=== PATIENT | male | born 1960 | race Caucasian/White ===

== ENCOUNTER 2018-05-24 06:42 | Observation (INO) ==
--- NOTE | 2018-05-24 06:57 | ERNOTE ---
<Fahad Yeager - Last Filed: 05/24/18 07:56> Dyspnea - General Presenting Symptoms: shortness of breath Time Seen by Provider: 05/24/18 06:48 Source: patient Exam Limitations: no limitations - Immun/Allergies/Home Medications Immunizations: IMMUNIZATION HX Immunizations Up to Date Yes Allergies/Adverse Reactions: Allergies codeine Adverse Reaction (Intermediate, Verified 05/24/18 06:52) HALLUCINATIONS Tetracyclines Adverse Reaction (Intermediate, Verified 05/24/18 06:52) DYSENTARY erythromycin base [Erythromycin Base] Adverse Reaction (Mild, Verified 05/24/18 06:52) N/V latex Adverse Reaction (Mild, Verified 05/24/18 06:52) OXYGEN TUBING CAUSES BLISTERS NOSE/EARS Home Medications: HOME MEDICATIONS Aspirin 325 mg PO DAILY 02/06/14 [Last Taken Unknown] Sildenafil Citrate [Viagra] 100 mg PO DAILY PRN 02/06/14 [Last Taken Unknown] albuterol sulfate 2.5 mg/3 mL (0.083 %) solution for nebulization 2.5 mg IH Q6H PRN ml 12/20/17 [Last Taken Unknown] benazepril 20 mg tablet 20 mg PO DAILY 90 Days #90 tab 12/21/17 [Last Taken Unknown] prasugrel 10 mg tablet 10 mg PO DAILY 30 Days #30 tab 01/10/18 [Last Taken Unknown] pantoprazole 40 mg tablet,delayed release 40 mg PO DAILY #30 tab 01/22/18 [Last Taken Unknown] ipratropium 20 mcg-albuterol 100 mcg/actuation mist for inhalation 1 puff IH Q6H #4 g 04/26/18 [Last Taken Unknown] benzonatate 200 mg capsule 200 mg PO TID PRN #30 cap 05/09/18 [Last Taken Unknown] fluticasone 50 mcg/actuation nasal spray,suspension 2 spray PAULA DAILY PRN 05/09/18 [Last Taken Unknown] prednisone 20 mg tablet See Rx Instructions PO DAILY #14 tab 05/14/18 [Last Taken Unknown] ciprofloxacin 500 mg tablet 500 mg PO BID 14 Days #28 tab 05/22/18 [Last Taken Unknown] - History of Present Illness Narrative: Pt arrived by EMS with c/o shortness of breath that worsened overnight. He st ates he has had a URI for 3 weeks and thought he was over it until night before last when he began to worsen again. 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 Severity: moderate Treatment DEVELOPMENT SCIENTIST: by patient, albuterol Initiating event: Reports: upper resp illness Frequency of episodes: Reports: occassional episodes Modifying Factors - (Improves): Reports: albuterol, oxygen Modifying Factors (Worsens): Reports: activity Associated Symptoms-Dyspnea: Reports: fever/chills Prior Treatment: Reports: recently seen Review of Systems - Review of Systems Constitutional: Present: recent illness, fever, chills, fatigue, malaise ENT: Present: nose congestion, nasal drainage Respiratory: Present: shortness of breath, cough, orthopnea, wheezing Gastrointestinal/Abdominal: Absent: nausea, vomiting Musculoskeletal: Absent: back pain, muscle pain Skin: Absent: rash Endocrine: Present: excessive sweating Medical History (Last Reviewed 05/24/18 @ 06:56 by Fahad Yeager DO) Tobacco abuse (Chronic) Rhinitis (Chronic) Onset Date: Unknown PAD (peripheral artery disease) (Chronic) Onset Date: Unknown Morbid obesity (Chronic) Onset Date: Unknown Hypertension (Chronic) Onset Date: ~2012 Hyperlipidemia (Chronic) Onset Date: ~2012 GERD (gastroesophageal reflux disease) (Chronic) Onset Date: ~2012 Erectile dysfunction (Chronic) Onset Date: ~2012 COPD (chronic obstructive pulmonary disease) (Chronic) Onset Date: ~2012 Cardiomegaly (Chronic) Onset Date: Unknown Asthma (Chronic) Onset Date: Unknown Anemia Onset Date: Unknown Surgical History: Surgical History (Last Reviewed 05/24/18 @ 06:56 by Fahad Yeager DO) History of ankle surgery Onset Date: Unknown Left ankle repair-screws and plate History of cholecystectomy Onset Date: ~2008 Dr Paredes History of colonoscopy Onset Date: ~2013 Dr Burgos-sigmoid diverticulosis. Recheck in 10 years. History of tonsillectomy Onset Date: ~1963 Sebaceous cyst Onset Date: ~2001 Posterior neck, under chin stent Onset Date: ~2011 [facility]-2 stents in left leg Family History: Family History (Last Reviewed 05/24/18 @ 06:56 by Fahad Yeager DO) Sister Heart disease Hypertension Father , age 82 Colon cancer Hypertension CVA (cerebral vascular accident) Mother , age 63 CHF (congestive heart failure) Heart disease Hypothyroidism Social History: Preferred Language German Smoking Status Current every day smoker Smoking packs per day 0.5 (Last Updated 05/20/18 @ 14:56 by DARRICK Manzo) No Social History Section defined Physical Exam - Physical Exam General Appearance: Present: wd/wn, alert, mild distress Head Exam: Present: normal inspection, no evidence of injury Neck: Present: normal inspection, nontender, supple Respiratory: Present: no respiratory distress, chest nontender, accessory muscle use - mild, decreased breath sounds, wheezing - mild Cardiovascular/Chest: Present: no murmur, tachycardia Back Exam: Present: normal inspection, normal range of motion, no vertebral tenderness Extremity Exam: Present: normal range of motion, extremity edema - mild Neurological Exam: Present: alert, oriented, no motor/sensory deficits Skin Exam: Present: normal color, warm/dry Lymphatic Exam: Present: no adenopathy Progress - Results and Orders Patient's Lab Results:: I have reviewed the patient's lab results. Results and Orders: Laboratory Tests 05/24/18 05/24/18 07:11 07:11 WBC 12.1 H Hgb 15.2 Hct 45.2 Plt Count 238 Neutrophils % 76.7 H Sodium 137 Potassium 4.1 Chloride 99 BUN 13 Creatinine 1.15 Random Glucose 104 Calcium 8.4 Total Bilirubin 0.3 AST 14 ALT 19 Alkaline Phosphatase 67 B-Natriuretic Peptide 146 Total Protein 7.0 Albumin 3.2 L - Vital Signs Patient's Vital Signs:: I have reviewed the patient's vital signs. - EKG EKG #1 EKG: supraventricular tachycardia - sinus tach, nonspecific ST T wave changes EKG read: Interp. by me - X-Ray X-Ray #1 X-Ray: chest Interpretation: Interp. by me X-ray Comments: no acute changes. - Transfer of Care Physician Sign Out: Fahad Yeager Receiving Physician: Mane Burleson Pending Results: Labs Expected Disposition: Discharge Departure Clinical Impression: Influenza, COPD exacerbation - Departure Disposition: Still a patient Condition: Fair Referrals: Mahogany Donnelly FNP [Primary Care Provider] - <Mane Burleson - Last Filed: 05/24/18 09:00> Dyspnea - Date Date of Service: 05/24/18 - Immun/Allergies/Home Medications Immunizations: IMMUNIZATION HX Immunizations Up to Date Yes History of Influenza Vaccine Yes Hx Pneumococcal Vaccination Yes Medical History (Last Reviewed 05/24/18 @ 06:56 by Fahad Yeager DO) Tobacco abuse (Chronic) Rhinitis (Chronic) Onset Date: Unknown PAD (peripheral artery disease) (Chronic) Onset Date: Unknown Morbid obesity (Chronic) Onset Date: Unknown Hypertension (Chronic) Onset Date: ~2012 Hyperlipidemia (Chronic) Onset Date: ~2012 GERD (gastroesophageal reflux disease) (Chronic) Onset Date: ~2012 Erectile dysfunction (Chronic) Onset Date: ~2012 COPD (chronic obstructive pulmonary disease) (Chronic) Onset Date: ~2012 Cardiomegaly (Chronic) Onset Date: Unknown Asthma (Chronic) Onset Date: Unknown Anemia Onset Date: Unknown Surgical History: Surgical History (Last Reviewed 05/24/18 @ 06:56 by Fahad Yeager DO) History of ankle surgery Onset Date: Unknown Left ankle repair-screws and plate History of cholecystectomy Onset Date: ~2008 Dr Paredes History of colonoscopy Onset Date: ~2013 Dr Burgos-sigmoid diverticulosis. Recheck in 10 years. History of tonsillectomy Onset Date: ~1963 Sebaceous cyst Onset Date: ~2001 Posterior neck, under chin stent Onset Date: ~2011 [facility]-2 stents in left leg Family History: Family History (Last Reviewed 05/24/18 @ 06:56 by Fahad Yeager DO) Sister Heart disease Hypertension Father , age 82 Colon cancer Hypertension CVA (cerebral vascular accident) Mother , age 63 CHF (congestive heart failure) Heart disease Hypothyroidism Social History: Preferred Language German Smoking Status Current every day smoker Have you smoked in the past 12 Yes months Smoking packs per day 0.5 Alcohol Use none Drug Use none (Last Updated 05/20/18 @ 14:56 by DARRICK Manzo) No Social History Section defined Progress - Date and Time Seen: Date and Time: 05/24/18 08:57 patient continues to be sob, albuteral. solumedrol,o2 started, case discussed with dr jack to admit to observation - Vital Signs Vital Signs: Vital Signs 05/24/18 06:49 05/24/18 06:54 05/24/18 07:35 Temperature 38.6 C H Pulse Rate 114 H 114 H 109 H Respiratory Rate 25 H 21 H Blood Pressure 129/67 136/63 O2 Sat by Pulse Oximetry 92 L 90 L 05/24/18 07:50 05/24/18 08:05 05/24/18 08:17 Temperature Pulse Rate 106 H 104 H 104 H Respiratory Rate 26 H 34 H Blood Pressure 124/56 142/63 H O2 Sat by Pulse Oximetry 89 L 90 L 05/24/18 08:35 Temperature 38.3 C H Pulse Rate 138 H Respiratory Rate 21 H Blood Pressure 120/46 O2 Sat by Pulse Oximetry 92 L - Progress/Reassessment Progress:: Unchanged - Transfer of Care Expected Disposition: Admit, Discharge Plan - Plan Plan: to admit to observation
[2018-05-24 07:18] LABS: Hematocrit 45.2 % (42.0-52.0); Hemoglobin 15.2 gm/dL (13.5-18.0); Mean Cell Volume 91.1 fl (78-100); Mean Corpuscular Hemoglobin 30.6 pg (27-31); Mean Corpuscular Hgb Conc 33.6 g/dl (32-36); Mean Platelet Volume 8.6 fl (8-11.3); Neutrophil # 9.3 K/mm3 (1.3-6.0); Neutrophil % 76.7 % (42-75.0); Platelet Count 238 K/mm3 (150-450); Red Blood Count 4.96 M/mm3 (4.7-6.0); Red Cell Distribution Width 15.3 % (11.5-14.0); White Blood Count 12.1 K/mm3 (4.0-10.5)
[2018-05-24 07:35] LABS: Albumin * 3.2 gm/dl (3.4-5.0); Anion Gap 14.9 mmol/L (6.8-13.8); BUN/Creatinine Ratio 11.3 (9.0-21.6); Bilirubin, Total 0.3 mg/dL (0.0-1.1); Ca. Corrected For Albumin 8.7 mg/dL (8.4-10.2); Calcium * 8.4 mg/dL (7.9-10.9); Carbon Dioxide 27.2 mmol/L (24-32.6); Potassium 4.1 mmol/L (3.4-4.6)
[2018-05-24] MEDS ORDERED: ACETAMINOPHEN 500 MG TABLET PO ONE (07:39)
[2018-05-24] MEDS ORDERED: ALBUTEROL SULFATE 2.5 MG/0.5 ML VIAL.NEB IH ONE (08:11)
[2018-05-24] MEDS ORDERED: METHYLPREDNISOLONE SOD SUCC/PF 125 MG/2 ML VIAL IV ONE (08:43)
[2018-05-24] MEDS ORDERED: ALBUTEROL SULFATE 2.5 MG/0.5 ML VIAL.NEB IH PRN (09:02)
[2018-05-24] MEDS ORDERED: METHYLPREDNISOLONE SOD SUCC/PF 40 MG/ML VIAL IV SCH (09:15)
[2018-05-24] MEDS ORDERED: DEXTROSE 5 % IN WATER 100 ML BAG IV ONE (09:21)
[2018-05-24] MEDS: AZITHROMYCIN 500 MG in DEXTROSE 5 % IN WATER 250 ML IV SCH ×2 (10:31)
[2018-05-24] MEDS ORDERED: BENZONATATE 100 MG CAPSULE PO PRN (12:32)
[2018-05-24] MEDS ORDERED: FLUTICASONE PROPIONATE 120 SPRAY INHALER NS PRN (12:32)
--- NOTE | 2018-05-24 12:52 | HP ---
Chief Complaint - Chief Complaint Date of Service: 05/24/18 Time of Service: 12:50 Chief Complaint: SOB, cough, body aches History of Present Illness: Patient presented to the ER with 3 days of shortness of breath, cough, fever, and body aches. Patient was found to test positive for influenza A. He also has history of COPD and concern for possible COPD exacerbation so was admitted to the hospital due to trouble maintaining sats above 88 off of oxygen. Patient does not use oxygen at home. He was given a dose of Rocephin as well as Solu- Medrol. He was not started on Tamiflu due to being outside treatment window. Since being admitted to the floor he has been afebrile. He was brought in on 2 L of O2 per nasal cannula. He does have a dry cough. Medical History (Last Reviewed 05/24/18 @ 09:51 by Chelo Ojeda RN) Tobacco abuse (Chronic) Rhinitis (Chronic) Onset Date: Unknown PAD (peripheral artery disease) (Chronic) Onset Date: Unknown Morbid obesity (Chronic) Onset Date: Unknown Hypertension (Chronic) Onset Date: ~2012 Hyperlipidemia (Chronic) Onset Date: ~2012 GERD (gastroesophageal reflux disease) (Chronic) Onset Date: ~2012 Erectile dysfunction (Chronic) Onset Date: ~2012 COPD (chronic obstructive pulmonary disease) (Chronic) Onset Date: ~2012 Cardiomegaly (Chronic) Onset Date: Unknown Asthma (Chronic) Onset Date: Unknown Anemia Onset Date: Unknown Surgical History: Surgical History (Last Reviewed 05/24/18 @ 09:51 by Chelo Ojeda RN) History of ankle surgery Onset Date: Unknown Left ankle repair-screws and plate History of cholecystectomy Onset Date: ~2008 Dr Paredes History of colonoscopy Onset Date: ~2013 Dr Burgos-sigmoid diverticulosis. Recheck in 10 years. 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 Smoking Status Current every day smoker Have you smoked in the past 12 Yes months Smoking packs per day 0.5 Alcohol Use none Drug Use none (Last Updated 05/20/18 @ 14:56 by DARRICK Manzo) No Social History Section defined Review Of Systems (GEN) - Review of Systems Generalized/Overall Review: Present: Chills, Fever, Malaise EENTM: Present: Nose Congestion, Throat Pain - From cough Respiratory: Present: Cough, Shortness of Breath. Absent: Stridor, Wheezing Cardiac: Absent: Chest Pain, Edema, Palpitations Abdominal: Present: No Symptoms Reported Musculoskeletal: Present: Other - Generalized body aches Neurological: Present: No Symptoms Reported Skin: Present: No Symptoms Reported Immunizations: IMMUNIZATION HX Immunizations Up to Date Yes History of Influenza Vaccine Yes Hx Pneumococcal Vaccination Yes Allergies/Adverse Reactions: Allergies Allergy/AdvReac Type Severity Reaction Status Date / Time codeine AdvReac Intermediate HALLUCINATI Verified 05/24/18 09:53 ONS Tetracyclines AdvReac Intermediate DYSENTARY Verified 05/24/18 09:53 erythromycin base AdvReac Mild N/V Verified 05/24/18 09:53 [Erythromycin Base] latex AdvReac Mild OXYGEN Verified 05/24/18 09:53 TUBING CAUSES BLISTERS NOSE/EARS Home Medications: HOME MEDICATIONS Aspirin 325 mg PO DAILY 02/06/14 [Last Taken Unknown] Sildenafil Citrate [Viagra] 100 mg PO DAILY PRN 02/06/14 [Last Taken Unknown] albuterol sulfate 2.5 mg/3 mL (0.083 %) solution for nebulization 2.5 mg IH Q6H PRN ml 12/20/17 [Last Taken Unknown] benazepril 20 mg tablet 20 mg PO DAILY 90 Days #90 tab 12/21/17 [Last Taken Unknown] prasugrel 10 mg tablet 10 mg PO DAILY 30 Days #30 tab 01/10/18 [Last Taken Unknown] pantoprazole 40 mg tablet,delayed release 40 mg PO DAILY #30 tab 01/22/18 [Last Taken Unknown] ipratropium 20 mcg-albuterol 100 mcg/actuation mist for inhalation 1 puff IH Q6H #4 g 04/26/18 [Last Taken Unknown] benzonatate 200 mg capsule 200 mg PO TID PRN #30 cap 05/09/18 [Last Taken Unknown] fluticasone 50 mcg/actuation nasal spray,suspension 2 spray PAULA DAILY PRN 05/09/18 [Last Taken Unknown] prednisone 20 mg tablet See Rx Instructions PO DAILY #14 tab 05/14/18 [Last Taken Unknown] ciprofloxacin 500 mg tablet 500 mg PO BID 14 Days #28 tab 05/22/18 [Last Taken Unknown] Exam - Exam Vital Signs: Vital Signs - Last Taken Temp 37.2 C 05/24/18 09:55 Pulse 105 H 05/24/18 11:31 Resp 28 H 05/24/18 09:55 BP 108/49 05/24/18 09:55 Pulse Ox 94 05/24/18 09:55 Constitutional: Present: Alert, Oriented x3, Cooperative Neck: Present: non-tender, full range of motion Back Exam: Present: normal inspection, no CVA tenderness Respiratory: Present: chest non-tender, lungs clear, decreased breath sounds - Bilateral bases. Absent: rhonchi, stridor, wheezing - Bilateral bases Cardiovascular/Chest: Present: normal peripheral pulses. Absent: edema Abdomen: Present: Normal bowel sounds, soft, nontender Skin Exam: Present: normal color, diaphoresis Neurologic: Present: no motor/sensory deficits, alert, normal mood/affect Appearance: Present: appropriate appearance, appropriate insight Eye contact: Present: cooperative, good eye contact Thoughts: Present: normal thought pattern, normal mood /affect Diagnostic Studies: Abnormal Lab Results 05/24/18 05/24/18 05/24/18 Range/Units 07:11 07:11 07:40 WBC 12.1 H (4.0-10.5) K/mm3 RDW 15.3 H (11.5-14.0) % Immature Gran # (Auto) 0.05 H (0.000-0.0310) K/mm3 Neutrophils % 76.7 H (42-75.0) % Lymphocytes % 10.5 L (20-51) % Monocytes % 11.5 H (0.0-9) % Neutrophils # 9.3 H (1.3-6.0) K/mm3 Lymphocytes # 1.27 L (1.5-3.5) k/mm3 Monocytes # 1.4 H (0.0-1.0) k/mm3 Anion Gap 14.9 H (6.8-13.8) mmol/L Albumin 3.2 L (3.4-5.0) gm/dl Influenza Type A Ag Positive H (NEGATIVE) Laboratory Results WBC 12.1 K/mm3 (4.0-10.5) H 05/24/18 07:11 RBC 4.96 M/mm3 (4.7-6.0) 05/24/18 07:11 Hgb 15.2 gm/dL (13.5-18.0) 05/24/18 07:11 Hct 45.2 % (42.0-52.0) 05/24/18 07:11 MCV 91.1 fl (78-100) 05/24/18 07:11 MCH 30.6 pg (27-31) 05/24/18 07:11 MCHC 33.6 g/dl (32-36) 05/24/18 07:11 RDW 15.3 % (11.5-14.0) H 05/24/18 07:11 Plt Count 238 K/mm3 (150-450) 05/24/18 07:11 MPV 8.6 fl (8-11.3) 05/24/18 07:11 Immature Gran % (Auto) 0.40 % (0.001-0.429) 05/24/18 07:11 Immature Gran # (Auto) 0.05 K/mm3 (0.000-0.0310) H 05/24/18 07:11 Neutrophils % 76.7 % (42-75.0) H 05/24/18 07:11 Lymphocytes % 10.5 % (20-51) L 05/24/18 07:11 Monocytes % 11.5 % (0.0-9) H 05/24/18 07:11 Eosinophils % 0.2 % (0.0-3.0) 05/24/18 07:11 Basophils % 0.7 % (0.0-1.0) 05/24/18 07:11 Nucleated RBC % 0.0 k/mm3 (0-1) 05/24/18 07:11 Neutrophils # 9.3 K/mm3 (1.3-6.0) H 05/24/18 07:11 Lymphocytes # 1.27 k/mm3 (1.5-3.5) L 05/24/18 07:11 Monocytes # 1.4 k/mm3 (0.0-1.0) H 05/24/18 07:11 Eosinophils # 0.0 k/mm3 (0.0-0.7) 05/24/18 07:11 Absolute Basophils 0.1 k/mm3 (0.0-0.1) 05/24/18 07:11 Sodium 137 mmol/L (132-142) 05/24/18 07:11 Plasma Sodium 137 mmol/L (130-142) 05/24/18 07:11 Potassium 4.1 mmol/L (3.4-4.6) 05/24/18 07:11 Chloride 99 mmol/L (97-106) 05/24/18 07:11 Carbon Dioxide 27.2 mmol/L (24-32.6) 05/24/18 07:11 Anion Gap 14.9 mmol/L (6.8-13.8) H 05/24/18 07:11 BUN 13 mg/dL (6-23) 05/24/18 07:11 Creatinine 1.15 mg/dL (0.4-1.4) 05/24/18 07:11 Est GFR (Non-Af Amer) 70 mL/min (60-130) 05/24/18 07:11 BUN/Creatinine Ratio 11.3 (9.0-21.6) 05/24/18 07:11 Random Glucose 104 mg/dL (70-110) 05/24/18 07:11 Calcium 8.4 mg/dL (7.9-10.9) 05/24/18 07:11 Calcium Adj for Albumin 8.7 mg/dL (8.4-10.2) 05/24/18 07:11 Total Bilirubin 0.3 mg/dL (0.0-1.1) 05/24/18 07:11 AST 14 U/L (0-48) 05/24/18 07:11 ALT 19 U/L (19-67) 05/24/18 07:11 Alkaline Phosphatase 67 U/L (50-170) 05/24/18 07:11 B-Natriuretic Peptide 146 pg/mL (5-175) 05/24/18 07:11 Total Protein 7.0 gm/dL (6.2-8.2) 05/24/18 07:11 Albumin 3.2 gm/dl (3.4-5.0) L 05/24/18 07:11 Influenza Type A Ag Positive (NEGATIVE) H 05/24/18 07:40 Influenza Type B Ag Negative (NEGATIVE) 05/24/18 07:40 Assessment/Plan - Narrative Narrative: Symptomatic treatment only for influenza A at this time. Tylenol for aches and pains, Tessalon to help with his cough. Will consider an inhaler if he does develop wheezing but not currently having any issues with this at this time. Suspected COPD exacerbationpatient does not look like he is in COPD exacerbation, I think most of his illness is related to his influenza. Minimal white count, no increased productive cough, x-ray does not show any signs of air trapping or overinflation. He was started on Solu-Medrol which she received 2 doses, will continue prednisone for the next 5 days but will stop antibiotics at this time. Hypertensioncurrently well controlled on home treatment. No changes be made at this time, will continue his medicines. Tobacco usediscussed this with the patient. He states he has not had a cigarette in close to for 5 days and has no cravings to resume this. He is thinking that he is not going to resume this once he gets out and plans on quitting. Advised him to do so as this will likely increase his quality of life as well as prolong his life expectancy as well as decrease multiple chronic complications and comorbidities a result from cigarette use. Patient stated his understanding of this. 15 minutes spent discussing this with the patient Will resume chronic medications, likely home tomorrow. He can have a regular diet. No DVT prophylaxis patient as is already on an antiplatelet medicine as well as he will only be here for a short period of time. Nurses will notify me with any questions or concerns. - Assessment/Plan (1) Influenza Problem: Acute (2) COPD exacerbation Problem: Acute (3) Tobacco abuse Problem: Chronic (4) PAD (peripheral artery disease) Problem: Chronic (5) Hypertension Problem: Chronic Qualifiers: Hypertension type: essential hypertension Qualified Code(s): I10 - Essential (primary) hypertension
[2018-05-24] MEDS: ALBUTEROL SULFATE/IPRATROPIUM 3 ML NEBU IH SCH ×4 (13:33→18:30)
[2018-05-24] MEDS: ALBUTEROL SULFATE 2.5 MG/0.5 ML VIAL.NEB IH PRN (17:13)
[2018-05-24] MEDS: ACETAMINOPHEN 500 MG TABLET PO PRN (19:06)
[2018-05-24] MEDS: CIPROFLOXACIN HCL 500 MG TABLET PO SCH (21:05)
[2018-05-24] MEDS ORDERED: METHYLPREDNISOLONE SOD SUCC/PF 40 MG/ML VIAL IV ONE (22:00)
[2018-05-25] MEDS: ALBUTEROL SULFATE/IPRATROPIUM 3 ML NEBU IH SCH ×3 (00:19→13:01)
[2018-05-25] MEDS: ALBUTEROL SULFATE 2.5 MG/0.5 ML VIAL.NEB IH PRN ×2 (02:44→10:54)
[2018-05-25] MEDS: ACETAMINOPHEN 500 MG TABLET PO PRN (05:28)
[2018-05-25] MEDS ORDERED: ASPIRIN 325 MG TABLET.DR PO SCH (09:00)
[2018-05-25] MEDS ORDERED: PANTOPRAZOLE SODIUM 40 MG TABLET.EC PO SCH (09:00)
[2018-05-25] MEDS ORDERED: predniSONE 20 MG TABLET PO ONE (09:00)
[2018-05-25] MEDS ORDERED: ENALAPRIL MALEATE 20 MG TABLET PO SCH (09:00)
[2018-05-25] MEDS: CIPROFLOXACIN HCL 500 MG TABLET PO SCH (09:13)
[2018-05-25] MEDS: AZITHROMYCIN 500 MG in DEXTROSE 5 % IN WATER 250 ML IV SCH ×2 (09:51)
--- NOTE | 2018-05-25 12:33 | DS ---
(1) Influenza Problem: Acute (2) COPD exacerbation Problem: Ruled-out (3) Tobacco abuse Problem: Chronic (4) PAD (peripheral artery disease) Problem: Chronic (5) Hypertension Problem: Chronic Qualifiers: Hypertension type: essential hypertension Qualified Code(s): I10 - Essential (primary) hypertension Description of Stay: 57-year-old male brought in for respiratory influenza A as well as suspected COPD exacerbation. Patient initially was having difficulty maintaining sats above 88 on room air but this resolved while here. He was satting 90-94% without any O2 administration. He received 2 doses of IV Solu-Medrol for suspected COPD exacerbation which we will continue with prednisone for another 5 days and though I think his respiratory issues are more related to the influenza A than anything else. He was too late to start Tamiflu and so I discussed with the patient, symptomatic treatment only at this time. Recommend they take ibuprofen Tylenol as needed for fever and aches. We will send him out with some Tessalon to help with the cough. He is to follow-up with his PCP in the next week or so to make sure he is doing well. Discussed smoking cessation, sounds like he is ready to quit. He is not had a cigarette for close to a week now which I explained will help him significantly with his breathing difficulties. Again he will follow-up with Mahogany Crowe to discuss treatment options to help him with this issue. Overall he had no acute events while staying here overnight. His vital signs were stable and his respiratory/O2 sats were doing well. He had no questions or concerns and was discharged home in stable condition. Procedures Performed: none Results and Findings: Lab Pending Results 05/24/18 07:11: WBC 12.1 H, RBC 4.96, Hgb 15.2, Hct 45.2, MCV 91.1, MCH 30.6, MCHC 33.6, RDW 15.3 H, Plt Count 238, MPV 8.6, Immature Gran % (Auto) 0.40, Immature Gran # (Auto) 0.05 H, Neutrophils % 76.7 H, Lymphocytes % 10.5 L, Monocytes % 11.5 H, Eosinophils % 0.2, Basophils % 0.7, Nucleated RBC % 0.0, Neutrophils # 9.3 H, Lymphocytes # 1.27 L, Monocytes # 1.4 H, Eosinophils # 0.0, Absolute Basophils 0.1 05/24/18 07:11: Sodium 137, Plasma Sodium 137, Potassium 4.1, Chloride 99, Carbon Dioxide 27.2, Anion Gap 14.9 H, BUN 13, Creatinine 1.15, Est GFR (Non-Af Amer) 70, BUN/Creatinine Ratio 11.3, Random Glucose 104, Calcium 8.4, Calcium Adj for Albumin 8.7, Total Bilirubin 0.3, AST 14, ALT 19, Alkaline Phosphatase 67, B-Natriuretic Peptide 146, Total Protein 7.0, Albumin 3.2 L 05/24/18 07:40: Influenza Type A Ag Positive H, Influenza Type B Ag Negative Disposition: Home self-care Condition: Fair Discharge Activity: Activity as tolerated Discharge Diet: General/regular food Referrals: Mahogany Donnelly FNP [Primary Care Provider] - Prescriptions (Any new or edited meds): Benzonatate 200 mg PO TID PRN #30 cap PRN Reason: cough predniSONE [Prednisone] See Rx Instructions PO DAILY #10 tab Complete Home Medications List: Complete Home Medication List: Aspirin 325 mg PO DAILY 02/06/14 Sildenafil Citrate [Viagra] 100 mg PO DAILY PRN 02/06/14 albuterol sulfate 2.5 mg/3 mL (0.083 %) solution for nebulization 2.5 mg IH Q6H PRN ml 12/20/17 benazepril 20 mg tablet 20 mg PO DAILY 90 Days #90 tab 12/21/17 prasugrel 10 mg tablet 10 mg PO DAILY 30 Days #30 tab 01/10/18 pantoprazole 40 mg tablet,delayed release 40 mg PO DAILY #30 tab 01/22/18 ipratropium 20 mcg-albuterol 100 mcg/actuation mist for inhalation 1 puff IH Q6H #4 g 04/26/18 fluticasone 50 mcg/actuation nasal spray,suspension 2 spray PAULA DAILY PRN 05/09/18 ciprofloxacin 500 mg tablet 500 mg PO BID 14 Days #28 tab 05/22/18 Benzonatate 200 mg PO TID PRN #30 cap 05/25/18 predniSONE [Prednisone] See Rx Instructions PO DAILY #10 tab 05/25/18
[2018-05-25 14:32] VITALS: BP 102/58
[2018-05-27] MEDS ORDERED: AZITHROMYCIN 250 MG TABLET ONE (18:24)
== END 2018-05-25 14:47 | disposition home or self-care (01) ==
LOC: MS 06:42 → ER 06:42 → MS 09:01
PROVIDERS: ADMIT Family Medicine; ATTEND Family Medicine
CPT/HCPCS: 36415; 36600; 71020; 71046; 80053; 82803; 83519; 83880; 85025; 87400; 87449; 93005; 94640; 94664; 94760; 96365; 96367; 96375; 99285; G0378

== ENCOUNTER 2018-05-27 16:49 | Inpatient (IN) ==
[2018-05-27] MEDS ORDERED: ALBUTEROL SULFATE/IPRATROPIUM 3 ML NEBU IH ONE ×2 (16:57→17:00)
[2018-05-27] MEDS ORDERED: NORMAL SALINE 1,000 ML IV ONE (17:07)
--- NOTE | 2018-05-27 17:11 | ERNOTE ---
Dyspnea - General Presenting Symptoms: shortness of breath Time Seen by Provider: 05/27/18 16:49 Source: patient Exam Limitations: no limitations - Immun/Allergies/Home Medications Immunizations: IMMUNIZATION HX Immunizations Up to Date Yes History of Influenza Vaccine Yes Hx Pneumococcal Vaccination Yes Allergies/Adverse Reactions: Allergies codeine Adverse Reaction (Intermediate, Verified 05/27/18 17:01) HALLUCINATIONS Tetracyclines Adverse Reaction (Intermediate, Verified 05/27/18 17:01) DYSENTARY erythromycin base [Erythromycin Base] Adverse Reaction (Mild, Verified 05/27/18 17:01) N/V latex Adverse Reaction (Mild, Verified 05/27/18 17:01) OXYGEN TUBING CAUSES BLISTERS NOSE/EARS Home Medications: HOME MEDICATIONS Aspirin 325 mg PO DAILY 02/06/14 [Last Taken Unknown] Sildenafil Citrate [Viagra] 100 mg PO DAILY PRN 02/06/14 [Last Taken Unknown] albuterol sulfate 2.5 mg/3 mL (0.083 %) solution for nebulization 2.5 mg IH Q6H PRN ml 12/20/17 [Last Taken Unknown] benazepril 20 mg tablet 20 mg PO DAILY 90 Days #90 tab 12/21/17 [Last Taken Unknown] prasugrel 10 mg tablet 10 mg PO DAILY 30 Days #30 tab 01/10/18 [Last Taken Unknown] pantoprazole 40 mg tablet,delayed release 40 mg PO DAILY #30 tab 01/22/18 [Last Taken Unknown] ipratropium 20 mcg-albuterol 100 mcg/actuation mist for inhalation 1 puff IH Q6H #4 g 04/26/18 [Last Taken Unknown] fluticasone 50 mcg/actuation nasal spray,suspension 2 spray PAULA DAILY PRN 05/09/18 [Last Taken Unknown] ciprofloxacin 500 mg tablet 500 mg PO BID 14 Days #28 tab 05/22/18 [Last Taken Unknown] Benzonatate 200 mg PO TID PRN #30 cap 05/25/18 [Last Taken Unknown] predniSONE [Prednisone] See Rx Instructions PO DAILY #10 tab 05/25/18 [Last Taken Unknown] - History of Present Illness Narrative: Patient was admitted to the hospital three days ago for COPD exacerbation and influenza A. He was discharged two days ago and feels like he has been getting continually worse since, more cough and shortness of breath. His O2 sats at home where in the mid 80's yesterday and in the 70's today. 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 Denies: chest pain/discomfort Prior Treatment: Reports: recently seen Review of Systems - Review of Systems Constitutional: Present: recent illness, fever, malaise ENT: Absent: nose congestion, sore throat Respiratory: Present: shortness of breath, cough Cardiology: Absent: chest pain Gastrointestinal/Abdominal: Absent: nausea, vomiting, abdominal pain Genitourinary: Present: other - occasional incontinence Musculoskeletal: Absent: back pain Neurological: Present: headache. Absent: weakness, numbness Medical History (Last Reviewed 05/27/18 @ 17:02 by Ju Saldaña MD) Tobacco abuse (Chronic) Rhinitis (Chronic) Onset Date: Unknown PAD (peripheral artery disease) (Chronic) Onset Date: Unknown Morbid obesity (Chronic) Onset Date: Unknown Hypertension (Chronic) Onset Date: ~2012 Hyperlipidemia (Chronic) Onset Date: ~2012 GERD (gastroesophageal reflux disease) (Chronic) Onset Date: ~2012 Erectile dysfunction (Chronic) Onset Date: ~2012 COPD (chronic obstructive pulmonary disease) (Chronic) Onset Date: ~2012 Cardiomegaly (Chronic) Onset Date: Unknown Asthma (Chronic) Onset Date: Unknown Anemia Onset Date: Unknown Surgical History: Surgical History (Last Reviewed 05/27/18 @ 17:02 by Ju Saldaña MD) History of ankle surgery Onset Date: Unknown Left ankle repair-screws and plate History of cholecystectomy Onset Date: ~2008 Dr Paredes History of colonoscopy Onset Date: ~2013 Dr Burgos-sigmoid diverticulosis. Recheck in 10 years. History of tonsillectomy Onset Date: ~1963 Sebaceous cyst Onset Date: ~2001 Posterior neck, under chin stent Onset Date: ~2011 [facility]-2 stents in left leg Family History: Family History (Last Reviewed 05/27/18 @ 17:01 by Derrick Hall RN) Sister Heart disease Hypertension Father , age 82 Colon cancer Hypertension CVA (cerebral vascular accident) Mother , age 63 CHF (congestive heart failure) Heart disease Hypothyroidism Social History: Preferred Language Yoruba Smoking Status Current every day smoker Smoking packs per day 0.5 (Last Updated 05/20/18 @ 14:56 by DARRICK Manzo) No Social History Section defined Physical Exam - Physical Exam General Appearance: Present: wd/wn, alert, mild distress, anxious Head Exam: Present: normal inspection Ears, Nose, Throat: Present: normal pharynx, dry mucous membranes Respiratory: Present: no accessory muscle use, decreased breath sounds, expiration (prolonged), wheezing Cardiovascular/Chest: Present: regular rate, rhythm, no murmur Gastrointestinal/Abdominal: Present: normal bowel sounds, nontender, nondistended, soft Neurological Exam: Present: alert, oriented, normal mood/affect Skin Exam: Present: normal color, warm/dry Progress - Results and Orders Patient's Lab Results:: I have reviewed the patient's lab results. - Vital Signs Patient's Vital Signs:: I have reviewed the patient's vital signs. - EKG EKG #1 EKG: NSR, no ST T wave changes, unchanged from - 05/24/2018 EKG read: Interp. by me - X-Ray X-Ray #1 X-Ray: chest - bilateral infiltrates Interpretation: Reviewed by me - Progress/Reassessment Progress Note-Subjective: 05/27/18 17:59 patient feeling a little better after neb treatment, improved air movement discussed test results and plan to admit, patient agreed 05/27/18 18:[address] Huertas, okay to admit for bilateral pneumonia PSI 107, class IV on initial presentation met 2 SIRS criteria (HR>90, RR>20), but normal BP currently doesn't meed SIRS criteria but has low BP, will start sepsis bolus based on ideal body weight 05/27/18 18:31 patient had nausea and vomiting with erythromycin and refuses to take zithromax discussed with Dr Huertas, will change antibiotics to levaquin instead of ro cephin and zithromax Departure Clinical Impression: Influenza Bilateral pneumonia Qualifiers: Pneumonia type: due to unspecified organism Lung location: unspecified part of lung Qualified Code(s): J18.9 - Pneumonia, unspecified organism - Departure Disposition: Still a patient Condition: Stable
[2018-05-27 17:20] LABS: Hematocrit 44.6 % (42.0-52.0); Mean Cell Volume 89.4 fl (78-100); Mean Corpuscular Hemoglobin 30.1 pg (27-31); Mean Corpuscular Hgb Conc 33.6 g/dl (32-36); Mean Platelet Volume 8.9 fl (8-11.3); Platelet Count 184 K/mm3 (150-450); Red Blood Count 4.99 M/mm3 (4.7-6.0); White Blood Count 6.6 K/mm3 (4.0-10.5)
[2018-05-27 17:24] LABS: Total Cells Counted 100
[2018-05-27 17:35] LABS: Atypical (Reactive) Lymph 3 % (0-2); Band 4 % (0-2.0); Lymphocyte 13 % (20-51); Monocyte 2 % (0-9); Neutrophil 78 % (42-75); Neutrophil # 5.1 K/mm3 (1.3-6.0)
[2018-05-27 17:39] LABS: Platelet Estimate Normal (NORMAL)
[2018-05-27 17:40] LABS: Anisocytosis 1+; Microcytosis 1+; Target Cells 1+
[2018-05-27 17:41] LABS: Albumin * 2.4 gm/dl (3.4-5.0); Anion Gap 9.7 mmol/L (6.8-13.8); BUN/Creatinine Ratio 24.8 (9.0-21.6); Bilirubin, Total 0.3 mg/dL (0.0-1.1); Ca. Corrected For Albumin 9.2 mg/dL (8.4-10.2); Calcium * 8.2 mg/dL (7.9-10.9); Carbon Dioxide 25.7 mmol/L (24-32.6); Potassium 4.4 mmol/L (3.4-4.6); Rouleaux 1+; Tear Drop Cells 1+; Total Protein 6.1 gm/dL (6.2-8.2)
[2018-05-27] MEDS ORDERED: cefTRIAXone SODIUM 1,000 MG/100 ML BAG IV ONE (17:50)
[2018-05-27] MEDS ORDERED: AZITHROMYCIN 250 MG TABLET PO STA (18:15)
[2018-05-27] MEDS: NORMAL SALINE 1,000 ML IV PRN ×3 (18:27→20:42)
[2018-05-27] MEDS: ALBUTEROL SULFATE/IPRATROPIUM 3 ML NEBU IH SCH ×2 (19:00→22:03)
[2018-05-27] MEDS: LEVOFLOXACIN IN DEXTROSE 5 % 750 MG/150 ML BAG IV SCH (19:48)
[2018-05-27] MEDS: ACETAMINOPHEN 325 MG TABLET PO PRN (21:54)
[2018-05-27] MEDS ORDERED: FLUTICASONE PROPIONATE 120 SPRAY INHALER NS PRN (22:35)
[2018-05-27] MEDS ORDERED: predniSONE 20 MG TABLET PO ONE (22:38)
--- NOTE | 2018-05-27 23:09 | HP ---
Chief Complaint - Chief Complaint Date of Service: 05/27/18 Time of Service: 23:03 Chief Complaint: Shortness of breath History of Present Illness: Rashaad is a 57 yo male with history of COPD secondary to tobacco use, hypertension, and peripheral arterial disease with prior stenting. He reports a long gonzales this winter with upper respiratory infections that began with a sinus infection about one month ago and he was treated with augmentin. Sinus symptoms improved but he began having shortness of breath and cough about two weeks ago. He was seen in the ER and admitted to observation with influenza A. It was beyond the onset of symptoms to treat with Tamiflu so he was treated symptomatically. He was monitored in observation and had no respiratory distress or evidence of hypoxia. He was discharged to home. At home he reports symptoms continued to worsen and he became more and more short of breath. He presented to the [facility] ER and oxygen saturation was found to be in the 70's with tachypnea and respiratory distress. He was placed on oxygen mask to keep sats >90%. He reports he does not use oxygen at home and typically COPD is under good control. He does not use nebulizers at home, although he has these available if needed. He has combivent inhaler but reports using this once or twice a week normally. Medical History (Last Reviewed 05/27/18 @ 19:51 by Jerri Patten RN) Tobacco abuse (Chronic) Rhinitis (Chronic) Onset Date: Unknown PAD (peripheral artery disease) (Chronic) Onset Date: Unknown Morbid obesity (Chronic) Onset Date: Unknown Hypertension (Chronic) Onset Date: ~2012 Hyperlipidemia (Chronic) Onset Date: ~2012 GERD (gastroesophageal reflux disease) (Chronic) Onset Date: ~2012 Erectile dysfunction (Chronic) Onset Date: ~2012 COPD (chronic obstructive pulmonary disease) (Chronic) Onset Date: ~2012 Cardiomegaly (Chronic) Onset Date: Unknown Asthma (Chronic) Onset Date: Unknown Anemia Onset Date: Unknown Surgical History: Surgical History (Last Reviewed 05/27/18 @ 19:51 by Jerri Patten RN) History of ankle surgery Onset Date: Unknown Left ankle repair-screws and plate History of cholecystectomy Onset Date: ~2008 Dr Paredes History of colonoscopy Onset Date: ~2013 Dr Burgos-sigmoid diverticulosis. Recheck in 10 years. 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 Smoking Status Current every day smoker Have you smoked in the past 12 Yes months Smoking packs per day 0.5 Do you dip or chew tobacco No Alcohol Use none Drug Use none (Last Updated 05/20/18 @ 14:56 by DARRICK Manzo) No Social History Section defined Review Of Systems (GEN) - Review of Systems Generalized/Overall Review: Present: Weakness, Fatigue. Absent: Chills, Fever EENTM: Present: No Symptoms Reported Respiratory: Present: Cough, Shortness of Breath, Wheezing Cardiac: Present: Chest Pain, Other - pre-syncope (has felt like blacking out). Absent: Edema, Palpitations Abdominal: Present: Diarrhea, Other - foul smelling darker than normal stool. Absent: Nausea, Vomiting, Abdominal Pain, Constipation Genitourinary: Present: Urgency, Frequency Musculoskeletal: Present: No Symptoms Reported Neurological: Present: Anxiety Skin: Present: No Symptoms Reported Endocrine: Present: No Symptoms Reported Immunizations: IMMUNIZATION HX Immunizations Up to Date Yes History of Influenza Vaccine Yes Hx Pneumococcal Vaccination Yes Allergies/Adverse Reactions: Allergies Allergy/AdvReac Type Severity Reaction Status Date / Time codeine AdvReac Intermediate HALLUCINATI Verified 05/27/18 17:01 ONS Tetracyclines AdvReac Intermediate DYSENTARY Verified 05/27/18 17:01 erythromycin base AdvReac Mild N/V Verified 05/27/18 17:01 [Erythromycin Base] latex AdvReac Mild OXYGEN Verified 05/27/18 17:01 TUBING CAUSES BLISTERS NOSE/EARS Home Medications: HOME MEDICATIONS Aspirin 325 mg PO DAILY 02/06/14 [Last Taken Unknown] Sildenafil Citrate [Viagra] 100 mg PO DAILY PRN 02/06/14 [Last Taken Unknown] albuterol sulfate 2.5 mg/3 mL (0.083 %) solution for nebulization 2.5 mg IH Q6H PRN ml 12/20/17 [Last Taken Unknown] benazepril 20 mg tablet 20 mg PO DAILY 90 Days #90 tab 12/21/17 [Last Taken Unknown] prasugrel 10 mg tablet 10 mg PO DAILY 30 Days #30 tab 01/10/18 [Last Taken Unknown] pantoprazole 40 mg tablet,delayed release 40 mg PO DAILY #30 tab 01/22/18 [Last Taken Unknown] ipratropium 20 mcg-albuterol 100 mcg/actuation mist for inhalation 1 puff IH Q6H #4 g 04/26/18 [Last Taken Unknown] fluticasone 50 mcg/actuation nasal spray,suspension 2 spray PAULA DAILY PRN 05/09/18 [Last Taken Unknown] ciprofloxacin 500 mg tablet 500 mg PO BID 14 Days #28 tab 05/22/18 [Last Taken Unknown] Benzonatate 200 mg PO TID PRN #30 cap 05/25/18 [Last Taken Unknown] predniSONE [Prednisone] See Rx Instructions PO DAILY #10 tab 05/25/18 [Last Taken Unknown] Exam - Exam Vital Signs: Vital Signs - Last Taken Temp 37.4 C 05/27/18 21:00 Pulse 94 05/27/18 22:11 Resp 26 H 05/27/18 22:11 BP 123/70 05/27/18 22:00 Pulse Ox 95 05/27/18 22:03 Constitutional: Present: Alert, Oriented x3, Cooperative, Moderate distress - Respiratory distress ENT Exam: Present: hearing grossly normal Eye Exam: bilateral eye: normal inspection Respiratory: Present: crackles, wheezing, other - tachypnea Cardiovascular/Chest: Present: regular rate, rhythm, no murmur Abdomen: Present: Normal bowel sounds, soft, nontender, nondistended Skin Exam: Present: normal color, warm/dry, no cyanosis Neurologic: Present: alert, normal mood/affect, oriented x 3 Appearance: Present: appropriate appearance, appropriate insight Eye contact: Present: cooperative, good eye contact, normal speech Diagnostic Studies: Abnormal Lab Results 05/27/18 05/27/18 05/27/18 Range/Units 17:00 17:00 17:23 RDW 15.0 H (11.5-14.0) % Neutrophils % (Manual) 78 H (42-75) % Band Neuts % (Manual) 4 H (0-2.0) % Lymphocytes % (Manual) 13 L (20-51) % Lymphocytes # (Manual) 0.9 L (1.5-3.5) k/mm3 Atypic/Reactive Lymphs 3 H (0-2) % pO2 53.3 L (83.0-108.0) mmHg Total CO2 26.3 H (19.0-24.0) mmol/L ABG O2 Sat (Measured) 89.0 L (94.0-98.0) % Sodium 126 L (132-142) mmol/L Plasma Sodium 126 L (130-142) mmol/L Chloride 95 L (97-106) mmol/L BUN 30 H D (6-23) mg/dL BUN/Creatinine Ratio 24.8 H (9.0-21.6) B-Natriuretic Peptide 284 H (5-175) pg/mL Total Protein 6.1 L (6.2-8.2) gm/dL Albumin 2.4 L (3.4-5.0) gm/dl Microbiology 05/27/18 17:20 Sputum Culture - Final Expectorate Sputum Laboratory Results WBC 6.6 K/mm3 (4.0-10.5) 05/27/18 17:00 RBC 4.99 M/mm3 (4.7-6.0) 05/27/18 17:00 Hgb 15.0 gm/dL (13.5-18.0) 05/27/18 17:00 Hct 44.6 % (42.0-52.0) 05/27/18 17:00 MCV 89.4 fl (78-100) 05/27/18 17:00 MCH 30.1 pg (27-31) 05/27/18 17:00 MCHC 33.6 g/dl (32-36) 05/27/18 17:00 RDW 15.0 % (11.5-14.0) H 05/27/18 17:00 Plt Count 184 K/mm3 (150-450) 05/27/18 17:00 MPV 8.9 fl (8-11.3) 05/27/18 17:00 Neutrophils % (Manual) 78 % (42-75) H 05/27/18 17:00 Band Neuts % (Manual) 4 % (0-2.0) H 05/27/18 17:00 Lymphocytes % (Manual) 13 % (20-51) L 05/27/18 17:00 Monocytes % (Manual) 2 % (0-9) 05/27/18 17:00 Neutrophils # (Manual) 5.1 K/mm3 (1.3-6.0) 05/27/18 17:00 Lymphocytes # (Manual) 0.9 k/mm3 (1.5-3.5) L 05/27/18 17:00 Monocytes # (Manual) 0.1 k/mm3 (0.0-1.0) 05/27/18 17:00 Atypic/Reactive Lymphs 3 % (0-2) H 05/27/18 17:00 Platelet Estimate Normal (NORMAL) 05/27/18 17:00 Anisocytosis 1+ 05/27/18 17:00 Microcytosis 1+ 05/27/18 17:00 Target Cells 1+ 05/27/18 17:00 Tear Drop Cells 1+ 05/27/18 17:00 Kevan Cells 1+ 05/27/18 17:00 Rouleaux 1+ 05/27/18 17:00 pCO2 37.8 mmHg (35.0-48.0) 05/27/18 17:23 pO2 53.3 mmHg (83.0-108.0) L 05/27/18 17:23 HCO3 25.2 mmol/L (21.0-28.0) 05/27/18 17:23 Total CO2 26.3 mmol/L (19.0-24.0) H 05/27/18 17:23 Base Excess 1.2 mmol/L (-2.0-3.0) 05/27/18 17:23 ABG pH 7.44 (7.35-7.45) 05/27/18 17:23 ABG O2 Sat (Measured) 89.0 % (94.0-98.0) L 05/27/18 17:23 Sodium 126 mmol/L (132-142) L 05/27/18 17:00 Plasma Sodium 126 mmol/L (130-142) L 05/27/18 17:00 Potassium 4.4 mmol/L (3.4-4.6) 05/27/18 17:00 Chloride 95 mmol/L (97-106) L 05/27/18 17:00 Carbon Dioxide 25.7 mmol/L (24-32.6) 05/27/18 17:00 Anion Gap 9.7 mmol/L (6.8-13.8) 05/27/18 17:00 BUN 30 mg/dL (6-23) H D 05/27/18 17:00 Creatinine 1.21 mg/dL (0.4-1.4) 05/27/18 17:00 Est GFR (Non-Af Amer) 66 mL/min (60-130) 05/27/18 17:00 BUN/Creatinine Ratio 24.8 (9.0-21.6) H 05/27/18 17:00 Random Glucose 110 mg/dL (70-110) 05/27/18 17:00 Lactic Acid, Venous 1.0 mmol/L (0.4-2.0) 05/27/18 17:00 Calcium 8.2 mg/dL (7.9-10.9) 05/27/18 17:00 Calcium Adj for Albumin 9.2 mg/dL (8.4-10.2) 05/27/18 17:00 Total Bilirubin 0.3 mg/dL (0.0-1.1) 05/27/18 17:00 AST 35 U/L (0-48) 05/27/18 17:00 ALT 20 U/L (19-67) 05/27/18 17:00 Alkaline Phosphatase 75 U/L (50-170) 05/27/18 17:00 B-Natriuretic Peptide 284 pg/mL (5-175) H 05/27/18 17:00 Total Protein 6.1 gm/dL (6.2-8.2) L 05/27/18 17:00 Albumin 2.4 gm/dl (3.4-5.0) L 05/27/18 17:00 Assessment/Plan - Narrative Narrative: Rashaad is a 57 yo male who presents with: 1) Acute Respiratory Failure - Secondary to Bilateral community acquired pneumonia and influenza A. Currently on oxygen mask. Will treat with antibiotics, prednisone, nebulizers, and oxygen. 2) Bilateral Community Acquired Pneumonia - He was in the hospital last weekend but did not receive IV antibiotics, so this is not a hospital acquired pneumonia. He was previously diagnosed with Influenza A and he now has a secondary bacterial (bilateral lobe) pneumonia. He has recently been on augmentin and Cipro and has an allergy to erythromycin. Will treat with Levaquin 750mg q24h. Will give incentive spirometer and cornet and treat with nebulizers. CURB65 = 2 points putting him in moderate risk group with 6.8% all cause 30 day mortality and with a respiratory rate of 29 in the ER he is almost near 3 points that would increase his risk to 14% 3) COPD Exacerbation with hypoxia - He was on prednisone 20mg daily on taper from prior treatment, will increase up to 40mg daily of prednisone. Levaquin, nebulizers, IS, Cornet, and oxygen prn. He does not use oxygen at home. Will attempt to wean off O2. 4) Diarrhea - Recent antibiotics with foul smelling diarrhea. Will get stool culture and test for C/Diff. 5) Influenza A - I believe that Tamiflu is likely not going to help in his treatment. However, considering he has a severe infection with respiratory failure I feel that since there are low risks with treating with Tamiflu the potential benefits of Tamiflu outweigh and I will go ahead and give him Tamiflu in hopes that it will give any benefit. 6) Social - Expect >2 midnights as he is very sick and will need treatment, monitoring of response, and weaning from oxygen. I anticipate he will be here 4- 7 days for treatment. - Assessment/Plan (1) Acute respiratory failure Problem: Acute Qualifiers: Respiratory failure complication: hypoxia Qualified Code(s): J96.01 - Acute respiratory failure with hypoxia (2) Bilateral pneumonia Problem: Acute Qualifiers: Pneumonia type: due to unspecified organism Lung location: lower lobe of lung Qualified Code(s): J18.1 - Lobar pneumonia, unspecified organism (3) Influenza Problem: Acute (4) COPD exacerbation Problem: Acute (5) Tobacco abuse Problem: Chronic (6) PAD (peripheral artery disease) Problem: Chronic (7) Diarrhea Problem: Acute
[2018-05-27] MEDS: OSELTAMIVIR PHOSPHATE 75 MG CAPSULE PO SCH (23:15)
[2018-05-27] MEDS ORDERED: BENZONATATE 100 MG CAPSULE PO PRN (23:15)
[2018-05-28] MEDS: ALBUTEROL SULFATE/IPRATROPIUM 3 ML NEBU IH PRN (00:07)
[2018-05-28] MEDS: ALBUTEROL SULFATE/IPRATROPIUM 3 ML NEBU IH SCH ×7 (02:09→22:01)
[2018-05-28] MEDS: NORMAL SALINE 1,000 ML IV PRN ×2 (03:29→13:27)
[2018-05-28 05:25] LABS: Hematocrit 42.9 % (42.0-52.0); Hemoglobin 14.3 gm/dL (13.5-18.0); Mean Cell Volume 91.5 fl (78-100); Mean Corpuscular Hemoglobin 30.5 pg (27-31); Mean Corpuscular Hgb Conc 33.3 g/dl (32-36); Mean Platelet Volume 8.7 fl (8-11.3); Neutrophil # 6.4 K/mm3 (1.3-6.0); Neutrophil % 92.3 % (42-75.0); Platelet Count 169 K/mm3 (150-450); Red Blood Count 4.69 M/mm3 (4.7-6.0); Red Cell Distribution Width 15.4 % (11.5-14.0)
[2018-05-28 05:27] LABS: Albumin * 2.1 gm/dl (3.4-5.0); Anion Gap 12.2 mmol/L (6.8-13.8); BUN/Creatinine Ratio 18.5 (9.0-21.6); Bilirubin, Total 0.3 mg/dL (0.0-1.1); Ca. Corrected For Albumin 8.5 mg/dL (8.4-10.2); Calcium * 7.3 mg/dL (7.9-10.9); Carbon Dioxide 25.4 mmol/L (24-32.6); Potassium 4.6 mmol/L (3.4-4.6); Total Protein 5.7 gm/dL (6.2-8.2)
[2018-05-28] MEDS ORDERED: LORazepam 1 MG TABLET PO PRN (08:51)
[2018-05-28] MEDS ORDERED: MORPHINE SULFATE 2 MG/ML DISP.SYRIN IV ONE (08:53)
[2018-05-28] MEDS: OSELTAMIVIR PHOSPHATE 75 MG CAPSULE PO SCH ×2 (10:31→21:00)
[2018-05-28] MEDS: predniSONE 20 MG TABLET PO SCH (10:32)
[2018-05-28] MEDS: ENALAPRIL MALEATE 20 MG TABLET PO SCH (10:35)
[2018-05-28] MEDS: ASPIRIN 325 MG TABLET.DR PO SCH (10:35)
--- NOTE | 2018-05-28 11:15 | PN ---
Subjective - Date and Time Seen Date: 05/28/18 Time: 11:03 Subjective Narrative: Rashaad was feeling severe chest tightness, shortness of breath, and restlessness. He was very tachypneic (40s) and had significant labored breathing. He was give IV morphine at 2mg and he was able to relax and sleep. His respirations relaxed and oxygenation improved. After waking up he reports feeling great. He denies chest tightness or pain. He reports breathing better now than in the past two weeks. He continues to drop his oxygen to 89% even on 5lpm via mask when talking but when relaxing he is able to maintain >90% on 5lpm. Objective - Vitals Vitals: Last Vital Signs Temp 36.5 C 05/28/18 07:25 Pulse 115 H 05/28/18 10:35 Resp 32 H 05/28/18 10:18 BP 138/72 05/28/18 10:35 Pulse Ox 91 L 05/28/18 10:09 - Abnormal Lab Findings Abnormal Lab Findings: Abnormal Lab Results 05/27/18 05/27/18 05/27/18 Range/Units 17:00 17:00 17:23 RBC (4.7-6.0) M/mm3 RDW 15.0 H (11.5-14.0) % Immature Gran % (Auto) (0.001-0.429) % Immature Gran # (Auto) (0.000-0.0310) K/mm3 Neutrophils % (42-75.0) % Neutrophils % (Manual) 78 H (42-75) % Band Neuts % (Manual) 4 H (0-2.0) % Lymphocytes % (20-51) % Lymphocytes % (Manual) 13 L (20-51) % Neutrophils # (1.3-6.0) K/mm3 Lymphocytes # (1.5-3.5) k/mm3 Lymphocytes # (Manual) 0.9 L (1.5-3.5) k/mm3 Atypic/Reactive Lymphs 3 H (0-2) % pO2 53.3 L (83.0-108.0) mmHg Total CO2 26.3 H (19.0-24.0) mmol/L ABG O2 Sat (Measured) 89.0 L (94.0-98.0) % Sodium 126 L (132-142) mmol/L Plasma Sodium 126 L (130-142) mmol/L Chloride 95 L (97-106) mmol/L BUN 30 H D (6-23) mg/dL BUN/Creatinine Ratio 24.8 H (9.0-21.6) Random Glucose (70-110) mg/dL Calcium (7.9-10.9) mg/dL B-Natriuretic Peptide 284 H (5-175) pg/mL Total Protein 6.1 L (6.2-8.2) gm/dL Albumin 2.4 L (3.4-5.0) gm/dl 05/28/18 05/28/18 Range/Units 05:10 05:10 RBC 4.69 L (4.7-6.0) M/mm3 RDW 15.4 H (11.5-14.0) % Immature Gran % (Auto) 0.60 H (0.001-0.429) % Immature Gran # (Auto) 0.04 H (0.000-0.0310) K/mm3 Neutrophils % 92.3 H (42-75.0) % Neutrophils % (Manual) (42-75) % Band Neuts % (Manual) (0-2.0) % Lymphocytes % 4.7 L (20-51) % Lymphocytes % (Manual) (20-51) % Neutrophils # 6.4 H (1.3-6.0) K/mm3 Lymphocytes # 0.33 L (1.5-3.5) k/mm3 Lymphocytes # (Manual) (1.5-3.5) k/mm3 Atypic/Reactive Lymphs (0-2) % pO2 (83.0-108.0) mmHg Total CO2 (19.0-24.0) mmol/L ABG O2 Sat (Measured) (94.0-98.0) % Sodium 131 L (132-142) mmol/L Plasma Sodium (130-142) mmol/L Chloride (97-106) mmol/L BUN 24 H (6-23) mg/dL BUN/Creatinine Ratio (9.0-21.6) Random Glucose 112 H (70-110) mg/dL Calcium 7.3 L (7.9-10.9) mg/dL B-Natriuretic Peptide (5-175) pg/mL Total Protein 5.7 L (6.2-8.2) gm/dL Albumin 2.1 L (3.4-5.0) gm/dl - Exam Constitutional: Present: Alert, Oriented x3, Cooperative, Moderate distress - respiratory distress with labored breathing, tachypnea; improved after morphine Respiratory: Present: respiratory distress - improved after morphine, crackles, wheezing Cardiovascular/Chest: Present: no edema, no murmur, tachycardia Abdomen: Present: Normal bowel sounds, soft, nontender, nondistended Extremity: Present: normal inspection Skin Exam: Present: normal color, warm/dry, no cyanosis Neurologic: Present: alert, normal mood/affect, oriented x 3 Appearance: Present: appropriate appearance, appropriate insight Eye contact: Present: cooperative, good eye contact, normal speech Thoughts: Present: normal thought pattern, no apparent hallucination Assessment/Plan Plan Narrative: Rashaad is a 57 yo male who presents with: 1) Acute Respiratory Failure - Secondary to Bilateral community acquired pneumonia and influenza A. Currently on oxygen mask at 5LPM, he was worse this morning but after morphine 2mg IV he is much more relaxed. Continue levaquin, prednisone, nebulizer, oxygen. Will continue Morphine 2mg IV q2h prn respiratory distress. 2) Bilateral Community Acquired Pneumonia - Influenza A and a secondary bacterial (bilateral lobe) pneumonia. Levaquin 750mg q24h. Incentive spirometer and cornet and treat with nebulizers. CURB65 = 3 points putting him in severe risk group with 14% all cause 30 day mortality 3) COPD Exacerbation with hypoxia - Prednisone 40mg daily, Levaquin, nebulizers, IS, Cornet, and oxygen prn. Will attempt to wean off O2. 4) Diarrhea - Recent antibiotics with foul smelling diarrhea. Stool culture and CDiff Pending 5) Influenza A - Treating with Tamiflu the potential benefits of Tamiflu outweigh and I will go ahead and give him Tamiflu in hopes that it will give any benefit. 6) Anxiety - Lorazepam 0.5mg PO q4hr prn anxiety. Anxiety is better after getting morphine. 7) Social - Expect >2 midnights as he is very sick and will need treatment, monitoring of response, and weaning from oxygen. I anticipate he will be here 3- 6 more days for treatment. - Problems/Diagnosis (1) Acute respiratory failure Problem: Acute Qualifiers: Respiratory failure complication: hypoxia Qualified Code(s): J96.01 - Acute respiratory failure with hypoxia (2) Bilateral pneumonia Problem: Acute Qualifiers: Pneumonia type: due to unspecified organism Lung location: lower lobe of lung Qualified Code(s): J18.1 - Lobar pneumonia, unspecified organism (3) Influenza Problem: Acute (4) COPD exacerbation Problem: Acute (5) Tobacco abuse Problem: Chronic (6) PAD (peripheral artery disease) Problem: Chronic (7) Diarrhea Problem: Acute
[2018-05-28] MEDS: ACETAMINOPHEN 325 MG TABLET PO PRN ×2 (11:56→17:06)
[2018-05-28] MEDS: MORPHINE SULFATE 2 MG/ML DISP.SYRIN IV PRN ×2 (14:32→21:00)
[2018-05-28] MEDS: PRASUGREL HCL 10 MG PO SCH (14:48)
[2018-05-28] MEDS: LEVOFLOXACIN IN DEXTROSE 5 % 750 MG/150 ML BAG IV SCH (17:51)
[2018-05-28] MEDS ORDERED: AZITHROMYCIN 250 MG TABLET PO SCH (18:16)
[2018-05-29] MEDS: ACETAMINOPHEN 325 MG TABLET PO PRN (00:40)
[2018-05-29] MEDS: ALBUTEROL SULFATE/IPRATROPIUM 3 ML NEBU IH SCH ×4 (01:59→14:08)
[2018-05-29] MEDS: MORPHINE SULFATE 2 MG/ML DISP.SYRIN IV PRN (04:35)
[2018-05-29] MEDS: ALBUTEROL SULFATE/IPRATROPIUM 3 ML NEBU IH PRN (07:22)
[2018-05-29] MEDS: ASPIRIN 325 MG TABLET.DR PO SCH (08:29)
[2018-05-29] MEDS: predniSONE 20 MG TABLET PO SCH (08:29)
[2018-05-29] MEDS: ENALAPRIL MALEATE 20 MG TABLET PO SCH (08:30)
[2018-05-29] MEDS: OSELTAMIVIR PHOSPHATE 75 MG CAPSULE PO SCH (08:30)
[2018-05-29] MEDS: PRASUGREL HCL 10 MG PO SCH (08:31)
[2018-05-29 08:42] LABS: Hematocrit 44.2 % (42.0-52.0); Hemoglobin 14.3 gm/dL (13.5-18.0); Mean Cell Volume 92.3 fl (78-100); Mean Corpuscular Hemoglobin 29.9 pg (27-31); Mean Corpuscular Hgb Conc 32.4 g/dl (32-36); Mean Platelet Volume 8.8 fl (8-11.3); Platelet Count 193 K/mm3 (150-450); Red Blood Count 4.79 M/mm3 (4.7-6.0); Red Cell Distribution Width 15.7 % (11.5-14.0); White Blood Count 8.2 K/mm3 (4.0-10.5)
[2018-05-29] MEDS ORDERED: MEROPENEM 1 GM in NORMAL SALINE 100 ML IV SCH (08:45)
[2018-05-29] MEDS ORDERED: METHYLPREDNISOLONE SOD SUCC/PF 40 MG/ML VIAL IV SCH (08:45)
[2018-05-29 08:46] LABS: Total Cells Counted 100
[2018-05-29 08:50] LABS: Anion Gap 12.2 mmol/L (6.8-13.8); BUN/Creatinine Ratio 17.6 (9.0-21.6); Bilirubin, Total 0.3 mg/dL (0.0-1.1); Calcium * 7.7 mg/dL (7.9-10.9); Potassium 4.2 mmol/L (3.4-4.6); Total Protein 5.7 gm/dL (6.2-8.2); Troponin I 0.017 ng/mL (0.00-0.10)
[2018-05-29 08:59] LABS: Atypical (Reactive) Lymph 6 % (0-2); Band 19 % (0-2.0); Lymphocyte 16 % (20-51); Monocyte 5 % (0-9); Neutrophil 54 % (42-75); Neutrophil # 4.4 K/mm3 (1.3-6.0)
[2018-05-29 09:00] LABS: Dohle Bodies 2+; Platelet Estimate Normal (NORMAL)
[2018-05-29] MEDS: NORMAL SALINE 1,000 ML IV PRN (09:18)
[2018-05-29] MEDS ORDERED: AZITHROMYCIN 500 MG in DEXTROSE 5 % IN WATER 250 ML IV SCH ×2 (09:45)
[2018-05-29] MEDS ORDERED: PROPOFOL VIAL IV ONE ×2 (10:51→11:05)
[2018-05-29] MEDS ORDERED: PROPOFOL 1,000 MG/100 ML PIGGYBACK IV PRN (11:03)
--- NOTE | 2018-05-29 11:12 | ANES ---
Anesthesia Procedure Note Procedure Note: Date: 05/29/2018 Time: 10:45 AM Procedure: Endotracheal intubation Assessment: I was called to room 109 for a patient in respiratory failure, currently on BiPAP. The patient was in obvious respiratory distress with low oxygen saturation. Procedure: After assembling appropriate medication and equipment the patient was sedated with 200 mg of propofol, a defasciculating dose of vecuronium, ventilated on 100% oxygen per mask the supine position and then administered succinylcholine totaling 100 mg intravenously. With the use of a #4 cover glide scope, patient was intubated with a #7 endotracheal tube. The cuff was then inflated, the endotracheal tube was fixed in place with a commercial stabilizing device. End tidal CO2 was immediately present, bilateral breath sounds were equal and extremely course. SaO2 remained low, around 80%, and CPAP was ordered. Additional vecuronium was given totaling 10 mg. Approximately 50 mL of saline was given during the course procedure, there was no blood loss, intubation was uneventful. On completion of the intubation the patient was being prepared for transfer to the special care unit.
[2018-05-29] MEDS ORDERED: FUROSEMIDE 10 MG/ML VIAL IV ONE (11:38)
[2018-05-29] MEDS ORDERED: MIDAZOLAM HCL/PF 5 MG/ML VIAL IV ONE (11:51)
[2018-05-29] MEDS ORDERED: NORMAL SALINE 1,000 ML IV PRN ×2 (12:31→14:22)
[2018-05-29] MEDS ORDERED: NOREPINEPHRINE BITARTRATE 4 MG in DEXTROSE 5 % IN WATER 496 ML IV PRN ×2 (12:43)
--- NOTE | 2018-05-29 12:53 | ANES ---
Anesthesia Procedure Note Procedure Note: ANESTHESIA PROCEDURE NOTE Date of procedure: 05/29/2018. Time of procedure: 1215. Performed by: Yan Hughes CRNA Treating Plant Supervisor: None . Preprocedure diagnosis: Difficult IV access. Respiratory distress. Post procedure diagnosis: Same. Procedure: IV start Indications: Difficult IV access. Findings: A 22-gauge Angiocath IV started and patient's left wrist EBL: Minimal. Fluids: N/A. Specimen: N/A. Post procedure condition: The patient tolerated the procedure well. No complications were noted. Thank you for this consultation Yan Hughes CRNA
[2018-05-29] MEDS: VECURONIUM BROMIDE IV PRN ×3 (13:32→16:27)
[2018-05-29] MEDS: NORMAL SALINE IV PRN ×3 (13:32→16:27)
[2018-05-29] MEDS ORDERED: PROPOFOL VIAL IV PRN (14:16)
[2018-05-29] MEDS ORDERED: VECURONIUM BROMIDE 1 MG/ML IV PRN (14:17)
[2018-05-29] MEDS ORDERED: SUCCINYLCHOLINE CHLORIDE 20 MG/ML VIAL IV PRN (14:17)
[2018-05-29] MEDS ORDERED: WATER FOR INJECTION,STERILE 20 ML VIAL IJ PRN (14:19)
[2018-05-29 17:39] VITALS: BP 116/60
--- NOTE | 2018-06-12 07:16 | DS ---
Transfer Discharge Summary - Diagnosis(s)/Problems (1) Acute respiratory distress syndrome Problem: Acute (2) Acute respiratory failure Problem: Acute (3) Bilateral pneumonia Problem: Acute (4) Influenza Problem: Acute (5) COPD exacerbation Problem: Acute (6) Tobacco abuse Problem: Chronic (7) PAD (peripheral artery disease) Problem: Chronic (8) Diarrhea Problem: Acute - Course Description of Stay: Rashaad is a 57 yo male with underlying COPD and peripheral artery disease that was admitted with bilateral pneumonia following influenza A infection. He had acute respiratory failure with oxygen saturation in the 80% and required oxygen via mask to keep sats >90%. He was anxious and had increased work of breathing this was improved with IV morphine. He improved and felt much better. He described chest tightness which was evaluated for cardiac etiology but no evidence of NE was found. He was treated for pneumonia, COPD exacerbation, and influenza A with levaquin, tamiflu, and steroids. He was also given nebulizers and cornet and incentive spirometer. He was technically out of the window for tamiflu to be an effective treatment but the potential benefits of tamiflu compared to the minimal risks caused me to treat him with Tamiflu anyway. On the morning of the he had worsening hypoxia despite mask and was placed on bipap. Due to his worsening condition his antibiotics were broadened to Meropenem and azithromycin for its antinflammatory properties in the lungs. A chest xray was obtained which suggested acute respiratory distress syndrome. His condition continued to decline on bipap and a code was called on him as he was in need of further respiratory intervention. He was given IV morphine which helped to relax him, but despite Bipap he was not getting enough oxygen. Anesthesia intubated Rashaad and he was placed on mechanical ventilator. Due to his ARDS he was likely going to need a higher level of care with a revenue investigator. I discussed the case with Dr. Villalba of [facility]. He helped give respiratory assistance over the phone and suggested using paralytics in the setting of ARDs to help improve oxygenation as even on ventilator Rashaad was still hypoxic at 84%. He was given vecuronium and propofol and oxygen gradually improved. Dr. Villalba was concerned that he may need ECMO, which was not available at [facility] and the closest facility with this capability was [facility]. They were contacted and accepted transfer via ground due to weather conditions making flight not possible. Rashaad was transferred on mechanical ventilator via ambulance to [facility] for treatment of ARDS secondary to influenza A bilateral pneumonia with underlying COPD. Procedures Performed: see notes below Procedures: 05/29/18 - Intubated and placed on mechanical ventilator - Medications Medications: Active Medications Discontinued Medications Acetaminophen (Tylenol) 650 mg PO Q4H PRN PRN Reason: Mild pain (pain scale 1-3) Stop: 06/26/18 18:16 Last Admin: 05/29/18 00:40 Dose: 650 mg Documented by: Albuterol/Ipratropium (Duoneb 2.5-0.5mg/3ml Soln) 3 ml IH ONCE ONE Stop: 05/27/18 17:01 Last Admin: 05/27/18 17:11 Dose: 3 ml Documented by: Albuterol/Ipratropium (Duoneb 2.5-0.5mg/3ml Soln) 3 ml IH Q4HRT [facility] Stop: 06/26/18 19:01 Last Admin: 05/29/18 14:08 Dose: 3 ml Documented by: Albuterol/Ipratropium (Duoneb 2.5-0.5mg/3ml Soln) 3 ml IH Q4H PRN PRN Reason: shortness of breath Stop: 06/27/18 00:05 Last Admin: 05/29/18 07:22 Dose: 3 ml Documented by: Aspirin (Aspirin Enteric Coated) 325 mg PO DAILY [facility] Stop: 06/27/18 09:01 Last Admin: 05/29/18 08:29 Dose: 325 mg Documented by: Enalapril Maleate (Vasotec) 20 mg PO DAILY [facility] Stop: 06/27/18 09:01 Last Admin: 05/29/18 08:30 Dose: 20 mg Documented by: Furosemide (Lasix) 80 mg IV ONCE ONE Stop: 05/29/18 11:39 Last Admin: 05/29/18 14:43 Dose: Not Given Documented by: Sodium Chloride (Sodium Chloride 0.9%) 1,000 mls @ 999 mls/hr IV .Q1H1M ONE Stop: 05/27/18 18:07 Last Infusion: 05/27/18 18:22 Dose: Infused Documented by: Ceftriaxone Sodium (Rocephin 1000 Mg Er Piggyback) 1,000 mg in 100 mls @ 200 mls/hr IV ONCE ONE Stop: 05/27/18 18:19 Last Infusion: 05/27/18 19:02 Dose: Infused Documented by: Sodium Chloride (Sodium Chloride 0.9%) 1,000 mls @ 999 mls/hr IV .Q1H1M PRN PRN Reason: HYDRATION Last Infusion: 05/29/18 16:51 Dose: Infused Documented by: Levofloxacin/Dextrose (Levaquin) 750 mg in 150 mls @ 100 mls/hr IV Q24H [facility]; Protocol Stop: 06/26/18 18:46 Last Infusion: 05/28/18 19:25 Dose: Infused Documented by: Sodium Chloride (Sodium Chloride 0.9%) 1,000 mls @ 50 mls/hr IV .Q20H PRN PRN Reason: HYDRATION Stop: 06/26/18 21:49 Last Admin: 05/29/18 09:18 Dose: 50 mls/hr Documented by: Meropenem 1 gm/ Sodium (Chloride) 100 mls @ 200 mls/hr IV Q8H [facility]; Protocol Stop: 06/28/18 08:46 Last Infusion: 05/29/18 13:03 Dose: Infused Documented by: Azithromycin 500 mg/ Dextrose/ (Water) 250 mls @ 250 mls/hr IV Q24H [facility]; Protocol Stop: 06/28/18 09:46 Last Infusion: 05/29/18 14:21 Dose: Infused Documented by: Propofol (Diprivan 1000 Mg/100 Ml Piggyback) 1,000 mg in 100 mls @ 4.5 mls/hr IV TITR PRN; Protocol PRN Reason: Sedation Stop: 06/28/18 11:04 Last Titration: 05/29/18 13:31 Dose: 25 mcg/kg/min, 22.5 mls/hr Documented by: Sodium Chloride (Sodium Chloride 0.9%) 1,000 mls @ 999 mls/hr IV .Q1H1M PRN PRN Reason: HYDRATION Last Infusion: 05/29/18 16:43 Dose: Infused Documented by: Norepinephrine Bitartrate 4 mg (/ Dextrose/Water) 500 mls @ 3.75 mls/hr IV TITR PRN; Protocol PRN Reason: Hypotension Stop: 06/28/18 12:44 Last Titration: 05/29/18 15:22 Dose: 1.5 mcg/min, 11.25 mls/hr Documented by: Vecuronium [place] 10 mg/ (Sodium Chloride) 110 mls @ 82.5 mls/hr IV PRN PRN; Protocol PRN Reason: RESP. CONTROL OF ICU PATIENT Stop: 06/28/18 13:17 Last Admin: 05/29/18 16:27 Dose: 7.49 mg/hr, 82.5 mls/hr Documented by: Sodium Chloride (Sodium Chloride 0.9%) 1,000 mls @ 999 mls/hr IV .Q1H1M PRN PRN Reason: HYDRATION Last Infusion: 05/29/18 15:10 Dose: Infused Documented by: Methylprednisolone Sodium Succinate (Solu-Medrol) 60 mg IV Q6H [facility] Stop: 06/28/18 08:46 Last Admin: 05/29/18 09:17 Dose: 60 mg Documented by: Midazolam HCl (Versed) 5 mg IV ONCE ONE Stop: 05/29/18 11:52 Last Admin: 05/29/18 11:57 Dose: 5 mg Documented by: Morphine Sulfate (Morphine Sulfate) 2 mg IV ONCE ONE Stop: 05/28/18 08:54 Last Admin: 05/28/18 09:04 Dose: 2 mg Documented by: Morphine Sulfate (Morphine Sulfate) 2 mg IV Q1H PRN PRN Reason: respiratory distress, pain Stop: 06/27/18 10:35 Last Admin: 05/29/18 04:35 Dose: 2 mg Documented by: Prasugrel Hcl 10 Mg 10 mg PO DAILY [facility] Stop: 06/27/18 09:01 Last Admin: 05/29/18 08:31 Dose: Not Given Documented by: Oseltamivir Phosphate (Tamiflu) 75 mg PO BID [facility] Stop: 06/26/18 22:46 Last Admin: 05/29/18 08:30 Dose: 75 mg Documented by: Prednisone (Prednisone) 40 mg PO ONCE ONE Stop: 05/27/18 22:39 Last Admin: 05/27/18 23:15 Dose: 40 mg Documented by: Prednisone (Prednisone) 40 mg PO DAILY [facility] Stop: 06/27/18 09:01 Last Admin: 05/29/18 08:29 Dose: 40 mg Documented by: - Disposition Disposition: Short Term Hospital Inpatient Condition: Stable Discharge Date: 05/29/18
== END 2018-05-29 16:30 | disposition short-term general hospital (02) | DRG 208 ==
LOC: ER 16:49 → MS 18:13 → SCU 05-29 11:34
PROVIDERS: ADMIT Family Medicine; ATTEND Family Medicine
CPT/HCPCS: 36415; 36600; 71010; 71045; 80053; 82803; 83519; 83605; 83880; 84484; 85007; 85025; 87040; 87045; 87046; 87070; 87086; 87493; 93005; 94640; 94664; 96361; 96365; 99285